=== PATIENT | female | born 1975 | race Caucasian/White ===

== ENCOUNTER 2017-06-12 15:12 | Emergency (ER) | payer MEDICAID, OTHER ==
[2017-06-12 15:14] VITALS: BMI 26.2
[2017-06-12 15:19] VITALS: BP 111/70; PULSE 70; RESP 16; O2SAT 97
[2017-06-12] MEDS ORDERED: Sodium Chloride 0.9% 1,000 ML IV STA (15:36)
--- NOTE | 2017-06-12 15:39 | ED PDOC ---
HPI: General Adult Time Seen by Provider: 06/12/17 15:27 Chief Complaint (Nursing): Altered Mental Status Chief Complaint (Provider): Anxiety History Per: Patient ( ), EMS, Family History/Exam Limitations: no limitations Onset/Duration Of Symptoms: Days (weeks) Have you had recent travel within the past 21 days to any of the following countries: [place], [place], [place] or [place]?: No Current Symptoms Are (Timing): Still Present Additional Complaint(s): Pt. has been having frequent panic attacks where she gets hands and feet numb, lips tingling, dyspnea, arms and legs tightness. Happens suddenly and goes away on its own when she gets out of what she is doing and tries to relax. Pt. had episode today multiple times and last in the [place]. EMS called and brought pt. to the ED. Denies chest pain, headaches, dizziness, vision changes, abd pain, back pain, suicidal ideation, homicidal ideation, drugs, or etoh. Has depression and anxiety and on meds. 3 more meds added on Saturday. Past Medical History Reviewed: Nursing Documentation, Vital Signs Vital Signs: Last Vital Signs Temp 97.9 F 06/12/17 15:15 Pulse 70 06/12/17 15:15 Resp 16 06/12/17 15:15 BP 111/70 06/12/17 15:15 Pulse Ox 97 06/12/17 15:45 - Medical History PMH: Anxiety, Depression Denies: Chronic Kidney Disease - Surgical History Surgical History: Tonsillectomy - Family History Family History: States: Unknown Family Hx - Living Arrangements Living Arrangements: With Family - Social History Current smoker - smoking cessation education provided: No Alcohol: None Drugs: Denies - Immunization History Hx Tetanus Toxoid Vaccination: No Hx Influenza Vaccination: Yes Hx Pneumococcal Vaccination: No - Home Medications Home Medications: Ambulatory Orders Medication Instructions Recorded Docusate Sodium 100 mg PO DAILY #20 tablet 06/09/16 Psych Meds Unknown Names 06/09/16 Amoxicillin/Clavulanate [Augmentin 1 tab PO BID #14 tab 01/02/17 875 MG-125 MG] Ibuprofen [Motrin] 600 mg PO Q6 PRN #15 tab 01/02/17 - Allergies Allergies/Adverse Reactions: Allergies Allergy/AdvReac Type Severity Reaction Status Date / Time No Known Allergies Allergy Verified 06/12/17 15:15 Review of Systems ROS Statement: Except As Marked, All Systems Reviewed And Found Negative Constitutional: Positive for: Weakness Respiratory: Positive for: Shortness of Breath Musculoskeletal: Positive for: Other (tightness of extremities) Neurological: Positive for: Weakness, Numbness Physical Exam - Reviewed Nursing Documentation Reviewed: Yes Vital Signs Reviewed: Yes - Physical Exam Appears: Positive for: Non-toxic, No Acute Distress Head Exam: Positive for: ATRAUMATIC, NORMAL INSPECTION, NORMOCEPHALIC Skin: Positive for: Normal Color, Warm, DRY Eye Exam: Positive for: EOMI, Normal appearance, PERRL ENT: Positive for: Normal ENT Inspection Neck: Positive for: Normal, Painless ROM, Supple Cardiovascular/Chest: Positive for: Regular Rate, Rhythm. Negative for: Edema Respiratory: Positive for: CNT, Normal Breath Sounds Gastrointestinal/Abdominal: Positive for: Normal Exam, Bowel Sounds, Soft. Negative for: Tenderness Back: Positive for: Normal Inspection. Negative for: L CVA Tenderness, R CVA Tenderness Extremity: Positive for: Normal ROM (passive). Negative for: Tenderness, Pedal Edema Neurologic/Psych: Positive for: Alert, shake backboard notcher II-XII, Oriented. Negative for: Motor/Sensory Deficits (but 3/5 strength all extremities), Facial Droop - ECG ECG: Positive for: Interpreted By Me, Viewed By Me ECG Rhythm: Positive for: Normal QRS, Normal ST Segment, Sinus Rhythm O2 Sat by Pulse Oximetry: 97 Pulse Ox Interpretation: Normal - Progress ED Course And Treament: 1645: Stable. AAOx3. Pain free. Dr. Hall to fu on labs and crisis. Disposition - Clinical Impression Clinical Impression: Anxiety - Patient ED Disposition Is Patient to be Admitted: Transfer of Care - Disposition Disposition: Transfer of Care Disposition Time: 16:46 Condition: STABLE Patient Signed Over To: Gerald Hall
--- NOTE | 2017-06-12 16:55 | ED PDOC ---
- Laboratory Results Result Diagrams: 06/12/17 17:00 06/12/17 17:00 - ECG O2 Sat by Pulse Oximetry: 97 (RA) Pulse Ox Interpretation: Normal Medical Decision Making Medical Decision Making: Time: 1700 --Patient was endorsed to provider by Dr. Rubio Blandon. Pending lab results and crisis evaluation. Scribe Attestation: Documented by Miguelina Potts, acting as a scribe for Gerald Hall MD. Provider Scribe Attestation: All medical record entries made by the Scribe were at my direction and personally dictated by me. I have reviewed the chart and agree that the record accurately reflects my personal performance of the history, physical exam, medical decision making, and the department course for this patient. I have also personally directed, reviewed, and agree with the discharge instructions and disposition. Disposition - Clinical Impression Clinical Impression: Anxiety - POA Present On Arrival: None - Disposition Disposition: Transfer of Care Disposition Time: 18:58 Condition: STABLE Forms: [employer] ([place]) Patient Signed Over To: Piero Laird
[2017-06-12 17:13] LABS: BASO # 0.1 K/uL (0.0-0.2); BASO % 0.7 % (0.0-2.0); EOS % 0.3 % (0.0-4.0); HEMATOCRIT 31.8 % (34.0-47.0); LYMPH # 2.5 K/uL (1.0-4.3); LYMPH % 35.5 % (20.0-40.0); MEAN CELL VOLUME 87.2 fl (81.0-99.0); MEAN CORPUSCULAR HEMOGLOBIN 28.5 pg (27.0-31.0); MEAN CORPUSCULAR HGB CONC 32.7 g/dL (33.0-37.0); MEAN PLATELET VOLUME 10.1 fl (7.2-11.7); MONO # 0.4 K/uL (0.0-0.8); MONO % 5.9 % (0.0-10.0); NEUT # 4.1 K/uL (1.8-7.0); NEUT % 57.6 % (50.0-75.0); WHITE BLOOD COUNT 7.2 K/uL (4.8-10.8)
[2017-06-12 17:27] VITALS: TEMP 98.3
[2017-06-12 17:34] LABS: RBC URINE 1 /hpf (0-3); URINE BACTERIA RARE (<OCC); URINE BILIRUBIN NEGATIVE (NEGATIVE); URINE BLOOD NEGATIVE (NEGATIVE); URINE COLOR YELLOW (YELLOW); URINE GLUCOSE (UA) NEG (Normal); URINE KETONE 20 mg/dL (NEGATIVE); URINE LEUKOCYTE ESTERASE MOD Leu/uL (Negative); URINE PROTEIN NEGATIVE (NEGATIVE); URINE UROBILINOGEN 0.2-1.0 mg/dL (0.2-1.0); WBC URINE 6 /hpf (0-5)
[2017-06-12 17:37] LABS: ALB/GLOB RATIO 1.3 (1.0-2.1); ALCOHOL SERUM < 10 mg/dl (0-10); ALKALINE PHOSPHATASE 34 U/L (38-126); ALT/SGPT 21 U/L (9-52); AST/SGOT 18 U/L (14-36); BILIRUBIN,TOTAL 0.3 mg/dl (0.2-1.3); BLOOD UREA NITROGEN 6 mg/dl (7-17); CALCIUM 8.7 mg/dL (8.4-10.2); CARBON DIOXIDE 24 mmol/L (22-30); CHLORIDE 107 mmol/L (98-107); GFR AFRICAN-AMERICAN > 60; GLUCOSE,RANDOM 84 mg/dL (65-105); POTASSIUM 3.4 MMOL/L (3.6-5.0); SODIUM 141 mmol/l (132-148); TOTAL PROTEIN 6.7 G/DL (6.3-8.2)
--- NOTE | 2017-06-12 19:33 | ED PDOC ---
- Laboratory Results Result Diagrams: 06/12/17 17:00 06/12/17 17:00 - ECG O2 Sat by Pulse Oximetry: 97 (RA) Medical Decision Making Medical Decision Making: Time: 1899 --Patient was endorsed to provider by Dr. Gerald Hall. Pending crisis evaluation. Patient cleared for discharge by Dr Pacheco Scribe Attestation: Documented by Miguelina Potts, acting as a scribe for Piero Laird MD. Provider Scribe Attestation: All medical record entries made by the Scribe were at my direction and personally dictated by me. I have reviewed the chart and agree that the record accurately reflects my personal performance of the history, physical exam, medical decision making, and the department course for this patient. I have also personally directed, reviewed, and agree with the discharge instructions and disposition. Disposition Doctor Will See Patient In The: Office Counseled Patient/Family Regarding: Studies Performed, Diagnosis, Need For Followup - Clinical Impression Clinical Impression: Anxiety, PTSD (post-traumatic stress disorder) - POA Present On Arrival: None - Disposition Referrals: [facility] [Outside] Disposition: Routine/Home Disposition Time: 19:56 Condition: GOOD Additional Instructions: Follow up with your PCP in 2-3 days. Instructions: Post Traumatic Stress Disorder (ED)
--- NOTE | 2017-06-13 07:32 | CARD ---
APPROVED REPORT EKG Measurement Heart [id number] <Conclusion> Sinus rhythm with occasional premature ventricular complexes Otherwise normal ECG
== END 2017-06-12 20:24 | disposition home or self-care (01) ==
LOC: H.ER 15:12
DX: F43.10 Post-traumatic stress disorder, unspecified (principal); F32.9 Major depressive disorder, single episode, unspecified; F41.9 Anxiety disorder, unspecified; R20.2 Paresthesia of skin
CPT/HCPCS: 80053; 80320; 80324; 80345; 80346; 80349; 80353; 80358; 80361; 81003; 81025; 83992; 84484; 85025; 93005; 96374; 99285; J2060; J7040

== ENCOUNTER 2017-08-06 16:32 | Emergency (ER) | payer OTHER ==
[2017-08-06 16:32] VITALS: BMI 26.2
[2017-08-06 19:59] VITALS: BP 97/59; PULSE 70; RESP 16; O2SAT 98
--- NOTE | 2017-08-06 20:13 | ED PDOC ---
HPI: General Adult Time Seen by Provider: 08/06/17 17:19 Chief Complaint (Nursing): Dizziness/Lightheaded Chief Complaint (Provider): Sinus pressure, sore throat Past Medical History Vital Signs: Last Vital Signs Temp 98.8 F 08/06/17 19:58 Pulse 70 08/06/17 19:58 Resp 16 08/06/17 19:58 BP 97/59 L 08/06/17 19:58 Pulse Ox 98 08/06/17 19:58 - Medical History PMH: Anxiety, Depression Denies: Diabetes, Hepatitis, HIV, HTN, Chronic Kidney Disease, Seizures, Sexually Transmitted Disease - Surgical History Surgical History: Tonsillectomy - Family History Family History: States: Unknown Family Hx - Immunization History Hx Tetanus Toxoid Vaccination: No Hx Influenza Vaccination: Yes Hx Pneumococcal Vaccination: No - Home Medications Home Medications: Ambulatory Orders Medication Instructions Recorded Clonazepam [Klonopin] 0.5 mg PO BID 06/12/17 Gabapentin [Neurontin] 1 tab PO BID 06/12/17 Sertraline [Zoloft] 50 mg PO DAILY 06/12/17 Zolpidem [Ambien] 10 mg PO HS 06/12/17 Amoxicillin/Clavulanate [Augmentin 1 tab PO BID #20 tab 08/06/17 875 MG-125 MG] Guaifen/Phenyleph/Acetaminophn 1 tab PO BID #14 tab 08/06/17 [Mucinex Fast-Max Cold & Sinus 325 mg-200 mg-5] - Allergies Allergies/Adverse Reactions: Allergies Allergy/AdvReac Type Severity Reaction Status Date / Time No Known Allergies Allergy Verified 06/12/17 15:15 - ECG O2 Sat by Pulse Oximetry: 98 Disposition - Clinical Impression Clinical Impression: Sinus pressure - Patient ED Disposition Is Patient to be Admitted: No Counseled Patient/Family Regarding: Diagnosis, Need For Followup, Rx Given - Disposition Disposition: Routine/Home Disposition Time: 20:01 Condition: GOOD Prescriptions: Amoxicillin/Clavulanate [Augmentin 875 MG-125 MG] 1 tab PO BID #20 tab Guaifen/Phenyleph/Acetaminophn [Mucinex Fast-Max Cold & Sinus 325 mg-200 mg-5] 1 tab PO BID #14 tab Instructions: Sinusitis (ED)
[2017-08-06 22:23] VITALS: TEMP 98.6
== END 2017-08-06 20:10 | disposition home or self-care (01) ==
LOC: H.ER 16:32
DX: J34.89 Other specified disorders of nose and nasal sinuses (principal); Z86.59 Personal history of other mental and behavioral disorders

== ENCOUNTER 2017-10-14 21:03 | Emergency (ER) | payer OTHER ==
[2017-10-14 21:04] VITALS: BMI 26.2
[2017-10-14 21:21] VITALS: BP 101/68; PULSE 74; RESP 16; TEMP 97.4; O2SAT 97
[2017-10-14] MEDS ORDERED: Iohexol 240 (50 ml) PO ONE (22:02)
[2017-10-14] MEDS ORDERED: Morphine 4 MG/ML VIAL IVP STA (22:02)
[2017-10-14] MEDS ORDERED: Morphine 4 MG/ML VIAL ONE (22:44)
[2017-10-14] MEDS ORDERED: Iohexol 240 (50 ml) ONE (22:45)
[2017-10-14 22:54] LABS: SQUAMOUS EPITHIAL < 1 /hpf (0-5); URINE BILIRUBIN NEGATIVE (NEGATIVE); URINE BLOOD NEGATIVE (NEGATIVE); URINE CLARITY SLIGHTY-CLOUDY (Clear); URINE COLOR YELLOW (YELLOW); URINE GLUCOSE (UA) NEG (Normal); URINE LEUKOCYTE ESTERASE NEG Leu/uL (Negative); URINE NITRATE NEGATIVE (NEGATIVE); URINE PROTEIN NEGATIVE (NEGATIVE); URINE UROBILINOGEN 0.2-1.0 mg/dL (0.2-1.0)
[2017-10-14 23:10] LABS: BASO # 0.1 K/uL (0.0-0.2); BASO % 1.3 % (0.0-2.0); EOS # 0.1 K/uL (0.0-0.7); EOS % 1.2 % (0.0-4.0); HEMOGLOBIN 10.3 g/dL (12.0-16.0); LYMPH % 41.7 % (20.0-40.0); MEAN CORPUSCULAR HEMOGLOBIN 28.6 pg (27.0-31.0); MEAN CORPUSCULAR HGB CONC 32.5 g/dL (33.0-37.0); MONO # 0.4 K/uL (0.0-0.8); MONO % 5.6 % (0.0-10.0); NEUT # 3.6 K/uL (1.8-7.0); NEUT % 50.2 % (50.0-75.0); RBC 3.6 Mil/uL (3.80-5.20); RED CELL DISTRIBUTION WIDTH 12.8 % (11.5-14.5); WHITE BLOOD COUNT 7.2 K/uL (4.8-10.8)
[2017-10-14 23:16] LABS: VENOUS BLOOD GAS BASE EXCESS 2.8 mmol/L (0.0-2.0); VENOUS BLOOD GAS PCO2 47 mmHg (40-60); VENOUS BLOOD GAS PO2 32 mm/Hg (30-55); VENOUS BLOOD PH 7.39 (7.32-7.43)
[2017-10-14 23:23] LABS: ALB/GLOB RATIO 1.2 (1.0-2.1); ALBUMIN 3.9 g/dL (3.5-5.0); ALT/SGPT 16 U/L (9-52); AST/SGOT 12 U/L (14-36); BLOOD UREA NITROGEN 13 mg/dl (7-17); CALCIUM 8.7 mg/dL (8.4-10.2); GFR AFRICAN-AMERICAN > 60; GFR NON-AFRICAN AMERICAN > 60; LIPASE 55 U/L (23-300)
[2017-10-15] MEDS ORDERED: Sodium Chloride 0.9% 50 ML IV ONE (00:28)
[2017-10-15] MEDS ORDERED: Iohexol 300 100 ML IJ ONE (00:28)
--- NOTE | 2017-10-15 00:37 | ED PDOC ---
HPI: Abdomen Time Seen by Provider: 10/14/17 21:26 Chief Complaint (Nursing): Abdominal Pain History Per: Patient History/Exam Limitations: no limitations Onset/Duration Of Symptoms: Days (4) Outside of [place] travel?: No Current Symptoms Are (Timing): Still Present Location Of Pain/Discomfort: Diffuse Quality Of Discomfort: Unable To Describe Associated Symptoms: denies: Fever, Chills, Nausea, Vomiting, Diarrhea Exacerbating Factors: None Additional Complaint(s): Hx of anxiety and depression p/w abdominal pain and distension x 4 days. States that her stomach is getting bigger and bigger and that the pain is worsening. Denies nausea, vomiting, constipation, fevers, chills, urinary symptoms. Past Medical History Vital Signs: Last Vital Signs Temp 97.4 F L 10/14/17 21:18 Pulse 74 10/14/17 21:18 Resp 16 10/14/17 21:18 BP 101/68 10/14/17 21:18 Pulse Ox 97 10/15/17 02:40 - Medical History PMH: Anxiety, Depression Denies: Diabetes, Hepatitis, HIV, HTN, Chronic Kidney Disease, Seizures, Sexually Transmitted Disease - Surgical History Surgical History: Tonsillectomy - Family History Family History: States: Unknown Family Hx - Immunization History Hx Tetanus Toxoid Vaccination: No Hx Influenza Vaccination: Yes Hx Pneumococcal Vaccination: No - Home Medications Home Medications: Ambulatory Orders Medication Instructions Recorded Clonazepam [Klonopin] 0.5 mg PO BID 06/12/17 Gabapentin [Neurontin] 1 tab PO BID 06/12/17 Sertraline [Zoloft] 50 mg PO DAILY 06/12/17 Zolpidem [Ambien] 10 mg PO HS 06/12/17 Amoxicillin/Clavulanate [Augmentin 1 tab PO BID #20 tab 08/06/17 875 MG-125 MG] Guaifen/Phenyleph/Acetaminophn 1 tab PO BID #14 tab 08/06/17 [Mucinex Fast-Max Cold & Sinus 325 mg-200 mg-5] Docusate [Colace] 100 mg PO DAILY #30 cap 10/15/17 - Allergies Allergies/Adverse Reactions: Allergies Allergy/AdvReac Type Severity Reaction Status Date / Time No Known Allergies Allergy Verified 06/12/17 15:15 Review of Systems ROS Statement: Except As Marked, All Systems Reviewed And Found Negative Gastrointestinal: Positive for: Abdominal Pain Physical Exam - Reviewed Nursing Documentation Reviewed: Yes Vital Signs Reviewed: Yes - Physical Exam Appears: Positive for: Well, Non-toxic, No Acute Distress Head Exam: Positive for: ATRAUMATIC, NORMAL INSPECTION, NORMOCEPHALIC Skin: Positive for: Normal Color, Warm, DRY Eye Exam: Positive for: EOMI, Normal appearance, PERRL ENT: Positive for: Normal ENT Inspection Neck: Positive for: Normal, Painless ROM Cardiovascular/Chest: Positive for: Regular Rate, Rhythm Respiratory: Positive for: CNT, Normal Breath Sounds Gastrointestinal/Abdominal: Positive for: Bowel Sounds, Soft, Tenderness ( diffuse mild tenderness), Distended Back: Positive for: Normal Inspection Extremity: Positive for: Normal ROM Neurologic/Psych: Positive for: Alert, Oriented - Laboratory Results Result Diagrams: 10/14/17 23:06 10/14/17 23:06 - ECG O2 Sat by Pulse Oximetry: 97 Medical Decision Making Medical Decision Making: A/P: Hx of anxiety and depression p/w abdominal pain and distension -largely undifferentiated abd pain, possibly ascites from liver? ovarian CA? constipation? -pending labs, CT --02:05 EXAM: CT Abdomen and Pelvis With Intravenous Contrast EXAM DATE/TIME: 10/14/2017 10:02 PM CLINICAL HISTORY: 41 years old, female; Pain; Abdominal pain; Generalized; Additional info: Abd pain x 5 days, distension TECHNIQUE: Axial computed tomography images of the abdomen and pelvis with intravenous contrast. All CT scans at this facility use one or more dose reduction techniques, viz.: automated exposure control; ma/kV adjustment per patient size (including targeted exams where dose is matched to indication; i.e. head); or iterative reconstruction technique. Coronal and sagittal reformatted images were created and reviewed. CONTRAST: 90 mL of [id number] administered intravenously. COMPARISON: There are no prior studies for comparison. FINDINGS: Lower thorax: Heart size is normal. There is small bilateral pleural effusions. There is airspace disease in the lung bases. ABDOMEN: Liver: There is fatty infiltration of the liver. There is a low attenuation lesion in the liver too small to accurately characterize Gallbladder and bile ducts: Gallbladder is distended.There is prominence of the common duct. Pancreas: unremarkable Spleen: unremarkable Adrenals: unremarkable Kidneys and ureters: unremarkable Stomach and bowel: Stomach is partially distended. There is no air-fluid level. Rotation is normal. Small bowel is partially opacified with oral contrast. There is no obstruction. There is fecalization of the terminal ileum. Appendix is not visualized.There is no pericecal inflammation. There is a large amount of stool in the colon Appendix: See stomach and bowel PELVIS: Bladder: unremarkable Reproductive: Uterus and adnexal structures are unremarkable. ABDOMEN and PELVIS: Intraperitoneal space: There is no significant fluid.There is no free air. Bones/joints: There are no acute osseous abnormalities. Soft tissues: unremarkable Vasculature: Vascular structures are unremarkable. Lymph nodes: There is no pathologic adenopathy. IMPRESSION: Small bilateral pleural effusions with basilar airspace disease; fatty liver, no acute sella visceral abnormality; constipation Additional nonemergent findings as described above. Thank you for allowing us to participate in the care of your patient. Dictated and Authenticated by: Pamela Thomason MD 10/15/2017 2:05 AM Eastern Time ([place] & [place]) 230 PT. reports feeling better. Informed of results. Denies respiratory issues at this time. Encouraged patient to f/u w/ PMD for possible referal to GI and colonoscopy. Return precautions discussed. Disposition - Clinical Impression Clinical Impression: Constipation - Patient ED Disposition Is Patient to be Admitted: No - Disposition Referrals: [facility] [Outside] Disposition: Routine/Home Disposition Time: 02:40 Condition: IMPROVED Prescriptions: Docusate [Colace] 100 mg PO DAILY #30 cap Instructions: Constipation in Adults Forms: [facility] ([employer])
--- NOTE | 2017-10-15 02:05 | CT ---
EXAM: CT Abdomen and Pelvis With Intravenous Contrast EXAM DATE/TIME: 10/14/2017 10:02 PM CLINICAL HISTORY: 41 years old, female; Pain; Abdominal pain; Generalized; Additional info: Abd pain x 5 days, distension TECHNIQUE: Axial computed tomography images of the abdomen and pelvis with intravenous contrast. All CT scans at this facility use one or more dose reduction techniques, viz.: automated exposure control; ma/kV adjustment per patient size (including targeted exams where dose is matched to indication; i.e. head); or iterative reconstruction technique. Coronal and sagittal reformatted images were created and reviewed. CONTRAST: 90 mL of [id number] administered intravenously. COMPARISON: There are no prior studies for comparison. FINDINGS: Lower thorax: Heart size is normal. There is small bilateral pleural effusions. There is airspace disease in the lung bases. ABDOMEN: Liver: There is fatty infiltration of the liver. There is a low attenuation lesion in the liver too small to accurately characterize Gallbladder and bile ducts: Gallbladder is distended.There is prominence of the common duct. Pancreas: unremarkable Spleen: unremarkable Adrenals: unremarkable Kidneys and ureters: unremarkable Stomach and bowel: Stomach is partially distended. There is no air-fluid level. Rotation is normal. Small bowel is partially opacified with oral contrast. There is no obstruction. There is fecalization of the terminal ileum. Appendix is not visualized.There is no pericecal inflammation. There is a large amount of stool in the colon. Appendix: See stomach and bowel PELVIS: Bladder: unremarkable Reproductive: Uterus and adnexal structures are unremarkable. ABDOMEN and PELVIS: Intraperitoneal space: There is no significant fluid.There is no free air. Bones/joints: There are no acute osseous abnormalities. Soft tissues: unremarkable Vasculature: Vascular structures are unremarkable. Lymph nodes: There is no pathologic adenopathy. IMPRESSION: Small bilateral pleural effusions with basilar airspace disease; fatty liver, no acute sella visceral abnormality; constipation Additional nonemergent findings as described above.
== END 2017-10-15 03:50 | disposition home or self-care (01) ==
LOC: H.ER 21:03
DX: K59.00 Constipation, unspecified (principal); F32.9 Major depressive disorder, single episode, unspecified; F41.9 Anxiety disorder, unspecified; J90 Pleural effusion, not elsewhere classified; K76.0 Fatty (change of) liver, not elsewhere classified
CPT/HCPCS: 74177; 80053; 81003; 81025; 82803; 83690; 85025; 96374; 96375; 99283; J1885; J2270; J2405; Q9966; Q9967

== ENCOUNTER 2017-10-21 12:02 | Emergency (ER) | payer OTHER ==
[2017-10-21 12:05] VITALS: BMI 24.2
--- NOTE | 2017-10-21 13:09 | ED PDOC ---
HPI: Abdomen Chief Complaint (Provider): Abdominal pain History Per: Patient History/Exam Limitations: no limitations Onset/Duration Of Symptoms: Days (4), Intermittent Episodes Current Symptoms Are (Timing): Intermittent Episodes Pain Scale Rating Of: 9 Location Of Pain/Discomfort: Diffuse Quality Of Discomfort: Sharp Associated Symptoms: Fever Exacerbating Factors: None Alleviating Factors: None Last Bowel Movement: Yesterday Additional History Per: Family (sister) Abnormal Vaginal Bleeding: No Last Menstral Period: 10/11/2017 <Elliott Ferguson - Last Filed: 10/21/17 18:29> <Piero Laird - Last Filed: 10/22/17 10:25> Time Seen by Provider: 10/21/17 12:24 Chief Complaint (Nursing): Abdominal Pain Additional Complaint(s): 41 yo ,f, PMhx/o Anxiety, Depression presents to Ed with c/o diffuse and generalized abdominal pain started 4 days ago , intermittent 9 times/day lasting 2 hours, sharp,not radiated, associated with subjective fever last night , sweating and abdominal swelling sensation . She also c/o flu like symptoms dry cough, sore throat, runny nose, right ear pain started 6 days ago. She denies nausea, vomiting, diarrhea, rectal bleeding, heartburn, vaginal bleeding , vaginal discharge, dysuria. Reports BM habits every 2 days. Last BM yesterday helped by glycerin suppository .Patient was evaluated for similar symptoms 6 days ago in ED and treated for constipation. patient reports that after discharge the pain subsided x 2 days and it restarted again 4 days ago. She was instructed to set appt with GI, but it has not be possible. (Elliott Ferguson) Supervising Attending Note - Supervising Attending Note The Documented history was done by the: Physician Centerless Grinding Machine Adjuster, Attending Physician The documented physical exam was done by the: Physician [employer] Grinding Machine Adjuster, Attending Physician The documented procedures were done by the: Physician [employer]less Grinding Machine Adjuster, Attending Physician - Attestation: I have personally seen and examined this patient.: Yes I have fully participated in the care of the patient.: Yes I have reviewed all pertinent clinical information: Yes <Piero Laird - Last Filed: 10/22/17 10:25> Past Medical History - Medical History PMH: Anxiety, Depression Denies: Diabetes, Hepatitis, HIV, HTN, Chronic Kidney Disease, Seizures, Sexually Transmitted Disease - Surgical History Surgical History: Tonsillectomy - Family History Family History: States: Unknown Family Hx - Immunization History Hx Tetanus Toxoid Vaccination: No Hx Influenza Vaccination: Yes Hx Pneumococcal Vaccination: No <Elliott Ferguson - Last Filed: 10/21/17 18:29> Reviewed: Historical Data, Nursing Documentation, Vital Signs <Piero Laird - Last Filed: 10/22/17 10:25> Vital Signs: Last Vital Signs Temp 97 F L 10/21/17 18:59 Pulse 78 10/21/17 18:59 Resp 19 10/21/17 18:59 BP 128/78 10/21/17 18:59 Pulse Ox 98 10/21/17 18:59 - Home Medications Home Medications: Ambulatory Orders Medication Instructions Recorded Clonazepam [Klonopin] 0.5 mg PO BID 06/12/17 Gabapentin [Neurontin] 1 tab PO BID 06/12/17 Sertraline [Zoloft] 50 mg PO DAILY 06/12/17 Zolpidem [Ambien] 10 mg PO HS 06/12/17 Amoxicillin/Clavulanate [Augmentin 1 tab PO BID #20 tab 08/06/17 875 MG-125 MG] Guaifen/Phenyleph/Acetaminophn 1 tab PO BID #14 tab 08/06/17 [Mucinex Fast-Max Cold & Sinus 325 mg-200 mg-5] Docusate [Colace] 100 mg PO DAILY #30 cap 10/15/17 - Allergies Allergies/Adverse Reactions: Allergies Allergy/AdvReac Type Severity Reaction Status Date / Time No Known Allergies Allergy Verified 06/12/17 15:15 Review of Systems Constitutional: Positive for: Fever ENT: Positive for: Ear Pain Respiratory: Positive for: Cough Gastrointestinal: Positive for: Abdominal Pain <Elliott Ferguson - Last Filed: 10/21/17 18:29> ROS Statement: Except As Marked, All Systems Reviewed And Found Negative <Piero Laird - Last Filed: 10/22/17 10:25> Physical Exam - Physical Exam Appears: Positive for: No Acute Distress Head Exam: Positive for: ATRAUMATIC, NORMOCEPHALIC Skin: Positive for: Normal Color Eye Exam: Positive for: Normal appearance Neck: Positive for: Normal Cardiovascular/Chest: Positive for: Regular Rate, Rhythm. Negative for: Edema, Gallop, Murmur Respiratory: Positive for: Normal Breath Sounds. Negative for: Crackles, Rales , Rhonchi, Wheezing Gastrointestinal/Abdominal: Positive for: Soft, Tenderness (generlized TD). Negative for: Distended, Guarding, Rebound Pelvic Exam: Positive for: External Exam Normal Back: Positive for: Normal Inspection Extremity: Positive for: Normal ROM. Negative for: Tenderness, Pedal Edema Neurologic/Psych: Positive for: Alert, Oriented <Elliott Ferguson - Last Filed: 10/21/17 18:29> - Reviewed Nursing Documentation Reviewed: Yes Vital Signs Reviewed: Yes <Piero Laird - Last Filed: 10/22/17 10:25> - Laboratory Results Result Diagrams: 10/21/17 13:41 10/21/17 13:41 - ECG O2 Sat by Pulse Oximetry: 100 <Elliott Ferguson - Last Filed: 10/21/17 18:29> - Laboratory Results Result Diagrams: 10/21/17 13:41 10/21/17 13:41 <Piero Laird A - Last Filed: 10/22/17 10:25> Medical Decision Making <Elliott Ferguson - Last Filed: 10/21/17 18:29> <Piero Laird A - Last Filed: 10/22/17 10:25> Medical Decision Makin:50 Initial impression Abdominal pain. Constipation Differential -Abdominal pain related with psycosomatic disorder. Irritable bowel Syndrome. Inflammatory bowel disease Plan CBC, CMP, lipase, Urine dip IV toradol, Pepcid, Bentyl PO 18:05 Patient revaluated. reports that is feeling better , abdominal pain has subsided and desires to eat. Labs reviewed, CBC, CMP, lipase, UA normal. CT add: No evidence of acute cholecystitis, pacreatitis, or appendicitis. Mild constipation. Interval decrease of pleural effusion since the previous exam. Patient is cleared to be discharge Continue with same medications follow up with his PMD follow up with GI in 2 weeks. (Elliott Ferguson) Disposition - Patient ED Disposition Is Patient to be Admitted: No - Disposition Disposition: Routine/Home Disposition Time: 18:28 <Elliott Ferguson - Last Filed: 10/21/17 18:29> Doctor Will See Patient In The: Office Counseled Patient/Family Regarding: Studies Performed, Diagnosis, Need For Followup <Piero Laird - Last Filed: 10/22/17 10:25> - Clinical Impression Clinical Impression: Constipation, Abdominal pain - Disposition Referrals: George Benjamin MD [Medical Doctor] - Condition: FAIR Additional Instructions: Follow up with your PCP in2 -3 days. Instructions: Constipation in Adults, Stomach Ache and Stomach Upset Print Language: MONG[place]
[2017-10-21 13:22] VITALS: RESP 19
[2017-10-21 13:52] LABS: BASO % 0.9 % (0.0-2.0); EOS % 0.6 % (0.0-4.0); HEMOGLOBIN 10.6 g/dL (12.0-16.0); LYMPH # 2.1 K/uL (1.0-4.3); LYMPH % 40.9 % (20.0-40.0); MEAN CELL VOLUME 87.4 fl (81.0-99.0); MEAN CORPUSCULAR HEMOGLOBIN 29.1 pg (27.0-31.0); MEAN CORPUSCULAR HGB CONC 33.3 g/dL (33.0-37.0); MONO # 0.3 K/uL (0.0-0.8); MONO % 5.3 % (0.0-10.0); NEUT # 2.7 K/uL (1.8-7.0); NEUT % 52.3 % (50.0-75.0); RBC 3.65 Mil/uL (3.80-5.20); RED CELL DISTRIBUTION WIDTH 12.7 % (11.5-14.5); WHITE BLOOD COUNT 5.1 K/uL (4.8-10.8)
[2017-10-21 13:54] LABS: SQUAMOUS EPITHIAL 4 /hpf (0-5); URINE AMORPHOUS SEDIMENT RARE /ul (<OCC); URINE BACTERIA RARE (<OCC); URINE BILIRUBIN NEGATIVE (NEGATIVE); URINE BLOOD NEGATIVE (NEGATIVE); URINE CLARITY SLIGHTY-CLOUDY (Clear); URINE COLOR YELLOW (YELLOW); URINE GLUCOSE (UA) NEG (Normal); URINE LEUKOCYTE ESTERASE NEG Leu/uL (Negative); URINE NITRATE NEGATIVE (NEGATIVE); URINE PROTEIN NEGATIVE (NEGATIVE); URINE UROBILINOGEN 0.2-1.0 mg/dL (0.2-1.0)
[2017-10-21 14:05] LABS: ALB/GLOB RATIO 1.2 (1.0-2.1); ALT/SGPT 20 U/L (9-52); AST/SGOT 14 U/L (14-36); BLOOD UREA NITROGEN 14 mg/dl (7-17); CALCIUM 9.2 mg/dL (8.4-10.2); GFR AFRICAN-AMERICAN > 60; GFR NON-AFRICAN AMERICAN > 60; LIPASE 59 U/L (23-300)
[2017-10-21 14:12] LABS: BENZODIAZEPINES, UR NEGATIVE (NEGATIVE)
[2017-10-21 14:16] LABS: BARBITURATES, UR NEGATIVE (NEGATIVE); OPIATES, UR NEGATIVE (NEGATIVE); PHENCYCLIDINE, UR NEGATIVE (NEGATIVE)
--- NOTE | 2017-10-21 17:10 | CT ---
PROCEDURE: CT Abdomen and Pelvis with contrast HISTORY: diffuse abdominal pain COMPARISON: Comparison is made with previous study dated 10/15/2017 TECHNIQUE: Contrast dose: 100 mL Omnipaque 300. Axial and reformatted coronal and sagittal CT images of the abdomen and pelvis were obtained after IV contrast administration Radiation dose: Total exam DLP = 701.26 MGy-cm. This CT exam was performed using one or more of the following dose reduction techniques: Automated exposure control, adjustment of the mA and/or kV according to patient size, and/or use of iterative reconstruction technique. FINDINGS: LOWER THORAX: No evidence of acute pathology at the lung bases. Trace bilateral pleural effusions are noted less compared to the previous exam. LIVER: No significant interval change in the liver noted since the previous study. Mild hepatomegaly and mild diffuse low-attenuation of the liver is again noted. The portal vein is patent. GALLBLADDER AND BILE DUCTS: Unremarkable. PANCREAS: Unremarkable. No gross lesion or ductal dilatation. SPLEEN: Unremarkable. ADRENALS: Unremarkable. No mass. KIDNEYS AND URETERS: Unremarkable. No hydronephrosis. No solid mass. VASCULATURE: Unremarkable. No aortic aneurysm. BOWEL: Mild constipation is again noted. . No obstruction. No gross mural thickening. APPENDIX: No evidence of appendicitis P PERITONEUM: Small amount of fluid noted in the pelvis. LYMPH NODES: Unremarkable. No enlarged lymph nodes. BLADDER: Unremarkable. REPRODUCTIVE: The uterus is heterogeneous. BONES: No acute fracture. OTHER FINDINGS: None. IMPRESSION: Heterogeneous enhancement of the uterus without evidence of discrete lesion. No evidence of cholecystitis pancreatitis or appendicitis. Mild constipation. Interval decrease in the amount of pleural fusions since the previous exam.
[2017-10-21 19:01] VITALS: BP 128/78; PULSE 78; TEMP 97; O2SAT 98
== END 2017-10-21 19:01 | disposition home or self-care (01) ==
LOC: H.ER 12:02
DX: K59.00 Constipation, unspecified (principal); F32.9 Major depressive disorder, single episode, unspecified; F41.9 Anxiety disorder, unspecified
CPT/HCPCS: 74177; 80053; 80324; 80345; 80346; 80349; 80353; 80358; 80361; 81003; 81025; 83690; 83992; 85025; 96374; 96375; 99282; J1885

== ENCOUNTER 2017-12-06 13:10 | Emergency (ER) | payer OTHER ==
[2017-12-06 13:11] VITALS: BMI 24.2
[2017-12-06 14:47] LABS: BASO # 0.1 K/uL (0.0-0.2); BASO % 0.9 % (0.0-2.0); EOS % 0.6 % (0.0-4.0); HEMOGLOBIN 11.1 g/dL (12.0-16.0); LYMPH # 2.3 K/uL (1.0-4.3); LYMPH % 38.5 % (20.0-40.0); MEAN CELL VOLUME 88.4 fl (81.0-99.0); MEAN CORPUSCULAR HEMOGLOBIN 28.8 pg (27.0-31.0); MEAN CORPUSCULAR HGB CONC 32.6 g/dL (33.0-37.0); MEAN PLATELET VOLUME 10.7 fl (7.2-11.7); MONO # 0.4 K/uL (0.0-0.8); MONO % 6.2 % (0.0-10.0); NEUT # 3.2 K/uL (1.8-7.0); NEUT % 53.8 % (50.0-75.0); NRBC % 0.1 % (0.0-0.0); RBC 3.87 Mil/uL (3.80-5.20); RED CELL DISTRIBUTION WIDTH 12.9 % (11.5-14.5)
[2017-12-06 14:49] LABS: SQUAMOUS EPITHIAL 1 /hpf (0-5); URINE BILIRUBIN NEGATIVE (NEGATIVE); URINE BLOOD SMALL (NEGATIVE); URINE CLARITY SLIGHTY-CLOUDY (Clear); URINE COLOR YELLOW (YELLOW); URINE GLUCOSE (UA) NEG (Normal); URINE LEUKOCYTE ESTERASE SMALL Leu/uL (Negative); URINE PROTEIN 30 mg/dL (NEGATIVE); URINE UROBILINOGEN 0.2-1.0 mg/dL (0.2-1.0)
[2017-12-06 14:57] LABS: ALB/GLOB RATIO 1.2 (1.0-2.1); ALBUMIN 3.9 g/dL (3.5-5.0); ALT/SGPT 25 U/L (9-52); AST/SGOT 13 U/L (14-36); BLOOD UREA NITROGEN 11 mg/dl (7-17); CALCIUM 8.6 mg/dL (8.4-10.2); GFR AFRICAN-AMERICAN > 60; GFR NON-AFRICAN AMERICAN > 60; LIPASE 50 U/L (23-300)
--- NOTE | 2017-12-06 15:08 | RAD ---
PROCEDURE: Radiographs of the chest and abdomen (obstructive series) HISTORY: abd COMPARISON: No prior. TECHNIQUE: AP radiograph of the chest, with upright and supine radiographs of the abdomen. FINDINGS: CHEST: Lungs: Clear. Cardiovascular: Normal size heart. No pulmonary vascular congestion. Pleura: No pleural fluid. No pneumothorax. Other findings: None. ABDOMEN AND PELVIS: Bowel: Unremarkable bowel gas pattern. No evidence of mechanical obstruction. Air-fluid levels are questioned at the right lower quadrant within ascending colon potentially reflecting diarrhea. Clinically correlate. Free air: None. Bones: Unremarkable. Other findings: None. IMPRESSION: No bowel obstruction appreciated grossly. No free intrarenal gas or suspicious intra-abdominal calcifications. Diarrhea pattern may be present as discussed above within large bowel. Clinically correlate. No acute cardiopulmonary changes.
--- NOTE | 2017-12-06 15:43 | ED PDOC ---
HPI: Abdomen Time Seen by Provider: 12/06/17 13:50 Chief Complaint (Nursing): Abdominal Pain Chief Complaint (Provider): abd pain History Per: Patient (42 y/o female here with lower abdominal pain severe associated with constipation. Denies any fevers/chills. Has been seen in past for constipation. Has been given referral for GI but unable to make appointment. No h/o abd surgery in past.) Past Medical History Reviewed: Historical Data, Nursing Documentation, Vital Signs Vital Signs: Last Vital Signs Temp 99 F 12/06/17 13:16 Pulse 105 H 12/06/17 13:16 Resp 18 12/06/17 13:16 BP Pulse Ox 98 12/06/17 15:44 - Medical History PMH: Anxiety, Depression Denies: Diabetes, Hepatitis, HIV, HTN, Chronic Kidney Disease, Seizures, Sexually Transmitted Disease - Surgical History Surgical History: Tonsillectomy - Family History Family History: States: Unknown Family Hx - Immunization History Hx Tetanus Toxoid Vaccination: No Hx Influenza Vaccination: Yes Hx Pneumococcal Vaccination: No - Home Medications Home Medications: Ambulatory Orders Medication Instructions Recorded Clonazepam [Klonopin] 0.5 mg PO BID 06/12/17 Gabapentin [Neurontin] 1 tab PO BID 06/12/17 Sertraline [Zoloft] 50 mg PO DAILY 06/12/17 Zolpidem [Ambien] 10 mg PO HS 06/12/17 Amoxicillin/Clavulanate [Augmentin 1 tab PO BID #20 tab 08/06/17 875 MG-125 MG] Guaifen/Phenyleph/Acetaminophn 1 tab PO BID #14 tab 08/06/17 [Mucinex Fast-Max Cold & Sinus 325 mg-200 mg-5] Docusate [Colace] 100 mg PO DAILY #30 cap 10/15/17 Polyethylene Glycol 3350 [Miralax] 17 gm PO DAILY #85 gm 12/06/17 - Allergies Allergies/Adverse Reactions: Allergies Allergy/AdvReac Type Severity Reaction Status Date / Time No Known Allergies Allergy Verified 06/12/17 15:15 Review of Systems ROS Statement: Except As Marked, All Systems Reviewed And Found Negative Physical Exam - Reviewed Nursing Documentation Reviewed: Yes Vital Signs Reviewed: Yes - Physical Exam Appears: Positive for: Well, Non-toxic, No Acute Distress Head Exam: Positive for: ATRAUMATIC, NORMAL INSPECTION, NORMOCEPHALIC Skin: Positive for: Normal Color, Warm, DRY Eye Exam: Positive for: EOMI, Normal appearance, PERRL ENT: Positive for: Normal ENT Inspection Neck: Positive for: Normal, Painless ROM Cardiovascular/Chest: Positive for: Regular Rate, Rhythm Respiratory: Positive for: CNT, Normal Breath Sounds Gastrointestinal/Abdominal: Positive for: Normal Exam, Soft, Tenderness (tender right lower quadrant) Back: Positive for: Normal Inspection Rectal: Positive for: Other (no stool in vault.) Extremity: Positive for: Normal ROM Neurologic/Psych: Positive for: Alert, Oriented - Laboratory Results Result Diagrams: 12/06/17 13:46 12/06/17 13:46 - ECG O2 Sat by Pulse Oximetry: 98 - Progress ED Course And Treament: Fleet enema given in ED with minimal stool and minimal improvement of symptoms XRY abdomeN: No signs of obstruction. CT OF ABD/PELVIS: PELVIC CONGESTION SYNDROME; RETAINED FECES. Disposition - Clinical Impression Clinical Impression: Constipation - Patient ED Disposition Is Patient to be Admitted: No - Disposition Referrals: Rene Powell MD [Staff Provider] - [facility] [[facility]] Disposition: Routine/Home Disposition Time: 17:34 Condition: STABLE Prescriptions: Polyethylene Glycol 3350 [Miralax] 17 gm PO DAILY #85 gm Instructions: Constipation, Adult (DC) Forms: [facility] (Hebrew), [facility]Work Excuse
[2017-12-06] MEDS ORDERED: Sodium Chloride 0.9% 1,000 ML IV STA (15:44)
[2017-12-06] MEDS ORDERED: Iohexol 300 100 ML IJ ONE (15:54)
[2017-12-06] MEDS ORDERED: Sodium Chloride 0.9% 100 ML ONE (15:55)
--- NOTE | 2017-12-06 16:37 | CT ---
PROCEDURE: CT Abdomen and Pelvis with contrast HISTORY: abdominal pain COMPARISON: None. TECHNIQUE: Contrast dose: 95 mL Omnipaque 300 Radiation dose: Total exam DLP = 533.78 mGy-cm. This CT exam was performed using one or more of the following dose reduction techniques: Automated exposure control, adjustment of the mA and/or kV according to patient size, and/or use of iterative reconstruction technique. FINDINGS: LOWER THORAX: Unremarkable. LIVER: Unremarkable. No gross lesion or ductal dilatation. GALLBLADDER AND BILE DUCTS: Unremarkable. PANCREAS: Unremarkable. No gross lesion or ductal dilatation. SPLEEN: Unremarkable. ADRENALS: Unremarkable. No mass. KIDNEYS AND URETERS: Unremarkable. No hydronephrosis. No solid mass. VASCULATURE: Unremarkable. No aortic aneurysm. BOWEL: Mild retained feces. No bowel obstruction. No abnormal bowel loops. APPENDIX: Not identified. No secondary findings to suggest acute appendicitis. PERITONEUM: Unremarkable. No free fluid. No free air. LYMPH NODES: Unremarkable. No enlarged lymph nodes. BLADDER: Unremarkable. REPRODUCTIVE: Unremarkable uterus. Left-sided pelvic varices. This may be associated pelvic congestion syndrome. BONES: No acute fracture. OTHER FINDINGS: None. IMPRESSION: No acute abnormality. 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 Mild retained feces. No additional abnormality.
[2017-12-06 17:54] VITALS: BP 125/80; PULSE 75; RESP 16; TEMP 97.9; O2SAT 100
== END 2017-12-06 17:57 | disposition home or self-care (01) ==
LOC: H.ER 13:10
DX: K59.00 Constipation, unspecified (principal); I86.2 Pelvic varices; F32.9 Major depressive disorder, single episode, unspecified; F41.9 Anxiety disorder, unspecified
CPT/HCPCS: 74022; 74177; 80053; 81003; 81025; 83690; 85025; 87086; 99283; J7040; Q9967

== ENCOUNTER 2018-02-06 14:37 | Emergency (ER) | payer OTHER ==
[2018-02-06 14:37] VITALS: BMI 24.2
[2018-02-06 15:01] VITALS: BP 92/62; PULSE 70; RESP 18; TEMP 98.3; O2SAT 97
--- NOTE | 2018-02-06 15:42 | ED PDOC ---
HPI: Back Time Seen by Provider: 02/06/18 15:03 Chief Complaint (Nursing): Back Pain Chief Complaint (Provider): Back pain History Per: Patient History/Exam Limitations: no limitations Onset/Duration Of Symptoms: Persistent Current Symptoms Are (Timing): Still Present Quality Of Discomfort: "Pain" Additional History Per: Patient Additional Complaint(s): 42yo female, presents to ED for evaluation of 1 week of low back pain radiating to her right and left leg intermittently. Patient states she works in [employer] and lifts heavy objects at time. She denies any trauma, injuries or falls. Otherwise: (-) urinary symptoms, (-) paresthesias, (-) weakness, (-) acute bowel or bladder dysfunction, (-) fever. Has no history of prior back problem. Past Medical History Reviewed: Historical Data, Nursing Documentation, Vital Signs Vital Signs: Last Vital Signs Temp 98.3 F 02/06/18 14:55 Pulse 70 02/06/18 14:55 Resp 18 02/06/18 14:55 BP 92/62 L 02/06/18 14:55 Pulse Ox 97 02/06/18 14:55 - Medical History PMH: Anxiety, Depression Denies: Diabetes, Hepatitis, HIV, HTN, Chronic Kidney Disease, Seizures, Sexually Transmitted Disease - Surgical History Surgical History: Tonsillectomy - Family History Family History: States: No Known Family Hx, Unknown Family Hx - Immunization History Hx Tetanus Toxoid Vaccination: No Hx Influenza Vaccination: Yes Hx Pneumococcal Vaccination: No - Home Medications Home Medications: Ambulatory Orders Medication Instructions Recorded Clonazepam [Klonopin] 0.5 mg PO BID 06/12/17 Gabapentin [Neurontin] 1 tab PO BID 06/12/17 Sertraline [Zoloft] 50 mg PO DAILY 06/12/17 Zolpidem [Ambien] 10 mg PO HS 06/12/17 Amoxicillin/Clavulanate [Augmentin 1 tab PO BID #20 tab 08/06/17 875 MG-125 MG] Guaifen/Phenyleph/Acetaminophn 1 tab PO BID #14 tab 08/06/17 [Mucinex Fast-Max Cold & Sinus 325 mg-200 mg-5] Docusate [Colace] 100 mg PO DAILY #30 cap 10/15/17 Polyethylene Glycol 3350 [Miralax] 17 gm PO DAILY #85 gm 12/06/17 Cyclobenzaprine [Cyclobenzaprine 10 mg PO TID PRN #15 tab 02/06/18 HCl] Meloxicam [Mobic] 15 mg PO DAILY PRN #20 tab 02/06/18 - Allergies Allergies/Adverse Reactions: Allergies Allergy/AdvReac Type Severity Reaction Status Date / Time No Known Allergies Allergy Verified 02/06/18 15:02 Review of Systems Constitutional: Negative for: Fever, Chills Genitourinary Female: Negative for: Incontinence Musculoskeletal: Positive for: Back Pain Neurological: Negative for: Weakness, Numbness Physical Exam - Reviewed Nursing Documentation Reviewed: Yes Vital Signs Reviewed: Yes - Physical Exam Comments: GENERAL APPEARANCE: Patient is awake, alert, oriented x 3, in mild painful distress. SKIN: Warm, dry; (-) cyanosis. EYES: (-) conjunctival pallor. ENMT: Mucous membranes moist. NECK: (-) tenderness, (-) stiffness, (-) lymphadenopathy. CHEST AND RESPIRATORY: (-) rales, (-) rhonchi, (-) wheezes; breath sounds equal bilaterally. HEART AND CARDIOVASCULAR: (-) irregularity; (-) murmur, (-) gallop. ABDOMEN AND GI: Soft; (-) tenderness; (-) palpable mass. BACK: (+) paralumbar tenderness, (-) direct bony tenderness, (-) deformity. Straight leg raising (-) bilaterally. EXTREMITIES: (-) deformity. Distal pulses good bilaterally. NEURO AND PSYCH: Mental status as above. Intact sensation bilaterally; normal strength in extension of the knees, plantar and dorsiflexion of the toes. DTRs symmetric. - ECG O2 Sat by Pulse Oximetry: 97 (RA) Pulse Ox Interpretation: Normal Medical Decision Making Medical Decision Making: Impression: Back pain, likely sciatica Plan: -- Toradol 60mg IM Progress: Patient remains awake, alert, oriented x 3 and is laying in bed comfortably. Reports improvement of pain. Patient able to stand up and ambulate in the ER without difficulty. Patient feels comfortable going home. As she is currently fasting for her zoroastrianism she is refusing any PO medication at this time, however she is agreeable to taking a Rx home and will take when she is no longer fasting. Advised to follow up with primary care physician in 1-2 days without fail. Advised to take medication as prescribed. Return to the emergency room at any time for any new or worsening symptoms. Patient states she fully agrees with and understands discharge instructions. States that she agrees with the plan and disposition. Verbalized and repeated discharge instructions and plan. I have given the patient opportunity to ask any additional questions. Scribe Attestation: Documented by Zarina Murray acting as a scribe for ELBA Reaves. Provider Scribe Attestation: All medical record entries made by the Scribe were at my direction and personally dictated by me. I have reviewed the chart and agree that the record accurately reflects my personal performance of the history, physical exam, medical decision making, and the department course for this patient. I have also personally directed, reviewed, and agree with the discharge instructions and disposition. Disposition - Clinical Impression Clinical Impression: Sciatica - Patient ED Disposition Is Patient to be Admitted: No Counseled Patient/Family Regarding: Diagnosis, Need For Followup, Rx Given - Disposition Referrals: Gaurav Lainez MD [Staff Provider] - Disposition: Routine/Home Disposition Time: 15:45 Condition: IMPROVED Additional Instructions: Take medication as prescribed, follow up with referral physician in 1-2 days without fail. Return to the ER at any time for any new or worsening symptoms. Prescriptions: Cyclobenzaprine [Cyclobenzaprine HCl] 10 mg PO TID PRN #15 tab PRN Reason: Muscle Spasm Meloxicam [Mobic] 15 mg PO DAILY PRN #20 tab PRN Reason: Pain, Moderate (4-7) Instructions: Sciatica (DC) Forms: [employer] (Canadian), [facility] ED School/Work Excuse
== END 2018-02-06 16:32 | disposition home or self-care (01) ==
LOC: H.ER 14:37
DX: M54.30 Sciatica, unspecified side (principal); F32.9 Major depressive disorder, single episode, unspecified; F41.9 Anxiety disorder, unspecified
CPT/HCPCS: 81025; 96372; 99283; J1885

== ENCOUNTER → 2018-02-24 | Day surgery (SDC) | payer OTHER ==
[~2018-02-24] MED LIST: Etomidate 20 mg/10ml Inj IV ONE; Lactated Ringer's 500 ML IV ONE; Midazolam 2 MG/2 ML VIAL ONE; Propofol 10 mg/ml Inj (20 ML) ONE
[2018-02-24 10:38] VITALS: BMI 46.3
[2018-02-24 12:57] VITALS: TEMP 98.5; O2SAT 97
[2018-02-24 13:11] VITALS: BP 96/59; PULSE 68; RESP 21
== END | disposition home or self-care (01) ==
LOC: H.ENDO 08:42
PROVIDERS: ATTEND Internal Medicine Gastroenterology
DX: Z12.11 Encounter for screening for malignant neoplasm of colon (principal); F41.9 Anxiety disorder, unspecified; K64.8 Other hemorrhoids; K44.9 Diaphragmatic hernia without obstruction or gangrene; K29.50 Unspecified chronic gastritis without bleeding; R10.13 Epigastric pain
CPT/HCPCS: 43239; 45378; 88305; J2001; J2250; J2704; J7120

== ENCOUNTER 2018-04-03 15:25 | Emergency (ER) | payer OTHER ==
[2018-04-03 15:26] VITALS: BMI 46.3
[2018-04-03 15:35] VITALS: BP 112/78; PULSE 83; RESP 18; TEMP 98.1
--- NOTE | 2018-04-03 15:50 | ED PDOC ---
Lower Extremity Pain/Injury Time Seen by Provider: 04/03/18 15:39 Chief Complaint (Nursing): Lower Extremity Problem/Injury Chief Complaint (Provider): knee injury History Per: Patient Additional Complaint(s): 42-year-old female presents with abrasion to left knee status post fall 2 days ago. Patient has pain and swelling to affected area. She took Advil yesterday which helped somewhat. Patient able to walk but has mild pain when doing so. Patient states she did not seek medical attention at time of injury 2 days ago. She also states that tetanus is up-to-date. PMD: Dr. Potter Past Medical History Reviewed: Historical Data, Nursing Documentation, Vital Signs Vital Signs: Last Vital Signs Temp 98.1 F 04/03/18 15:30 Pulse 83 04/03/18 15:30 Resp 18 04/03/18 15:30 BP 112/78 04/03/18 15:30 Pulse Ox 98 04/03/18 15:30 - Medical History PMH: Anxiety, Depression - Surgical History Surgical History: Tonsillectomy - Family History Family History: States: No Known Family Hx - Living Arrangements Living Arrangements: With Family - Social History Current smoker - smoking cessation education provided: No Alcohol: None Drugs: Denies - Immunization History Hx Tetanus Toxoid Vaccination: Yes - Home Medications Home Medications: Ambulatory Orders Medication Instructions Recorded Clonazepam [Klonopin] 1 mg PO HS 06/12/17 Gabapentin [Neurontin] 1 tab PO DAILY 06/12/17 Sertraline [Zoloft] 50 mg PO DAILY 06/12/17 Zolpidem [Ambien] 5 mg PO HS 06/12/17 Prazosin HCL [Minipress] 5 mg PO DAILY 02/24/18 Quetiapine Fumarate [Seroquel] 100 mg PO DAILY 02/24/18 Ibuprofen [Motrin] 600 mg PO Q6 PRN #15 tab 04/03/18 - Allergies Allergies/Adverse Reactions: Allergies Allergy/AdvReac Type Severity Reaction Status Date / Time No Known Allergies Allergy Verified 04/03/18 15:35 Review of Systems ROS Statement: Except As Marked, All Systems Reviewed And Found Negative Musculoskeletal: Positive for: Other (left knee abrasion and pain s/p injury 2 days ago) Physical Exam - Reviewed Nursing Documentation Reviewed: Yes Vital Signs Reviewed: Yes - Physical Exam Appears: Positive for: Well, Non-toxic, No Acute Distress Skin: Positive for: Normal Color. Negative for: Rash Eye Exam: Positive for: Normal appearance Cardiovascular/Chest: Positive for: Regular Rate, Rhythm Respiratory: Positive for: Normal Breath Sounds Extremity: Positive for: Other (Superficial abrasion noted to left patellar region with surrounding soft tissue swelling, no acute infection, full range of motion of left knee, normal distal sensation) Neurologic/Psych: Positive for: Alert, Oriented, Gait - Laboratory Results Urine POC: Negative (test declined, patient is certain she is not ) - ECG O2 Sat by Pulse Oximetry: 98 Pulse Ox Interpretation: Normal Medical Decision Making Medical Decision Makin-year-old female with abrasion to left knee. Plan: PO motrin Wound was cleansed with saline, bacitracin and bandage applied. X-ray declined Patient advised ice and elevate affected area and was given prescription for Motrin. She was advised to follow up as needed with PMD. Disposition - Clinical Impression Clinical Impression: Knee abrasion - Patient ED Disposition Is Patient to be Admitted: No Counseled Patient/Family Regarding: Diagnosis, Need For Followup, Rx Given - Disposition Referrals: Nawaf Potter MD [Family Provider] - Disposition: Routine/Home Disposition Time: 16:06 Condition: STABLE Additional Instructions: Ice, rest and elevate affected area. Wash wound daily with soap and water and apply neosporin once per day. Follow up with primary care doctor for any persistent symptoms. Prescriptions: Ibuprofen [Motrin] 600 mg PO Q6 PRN #15 tab PRN Reason: Pain, Moderate (4-7) Instructions: Skin Abrasions (DC), Contusion (DC), Knee Sprain (DC) Forms: [employer] (Lao)
[2018-04-03 16:18] VITALS: O2SAT 99
== END 2018-04-03 16:18 | disposition home or self-care (01) ==
LOC: H.ER 15:25
DX: S80.212A Abrasion, left knee, initial encounter (principal); W19.XXXA Unspecified fall, initial encounter; Y92.89 Other specified places as the place of occurrence of the external cause; F41.9 Anxiety disorder, unspecified

== ENCOUNTER 2018-12-15 12:27 | Emergency (ER) | payer MEDICAID, OTHER ==
[2018-12-15 12:27] VITALS: BMI 25.7
[2018-12-15 12:49] VITALS: O2SAT 99
[2018-12-15] MEDS ORDERED: Alum-Mag Hydrox-Simethicone Susp (30 mL) PO ONE (13:07)
--- NOTE | 2018-12-15 13:11 | ED PDOC ---
HPI: Abdomen Time Seen by Provider: 12/15/18 13:09 Chief Complaint (Nursing): Abdominal Pain Chief Complaint (Provider): ABDOMINAL PAIN History Per: Patient (43 Y/O FEMALE HERE WITH COMPLAINT OF GENERALIZED ABDOMINAL PAIN X 10 DAYS. STATES PAIN IS CONTINUOUS DAILY. HAS SEEN DR KWAKU MARTINES WITH ENDOSCOPY 8 MONTHS AGO UNSURE OF RESULTS. NO FEVER/VOMITING/DIARRHEA/DYSURIA/) Past Medical History Reviewed: Historical Data, Nursing Documentation, Vital Signs Vital Signs: Last Vital Signs Temp 98 F 12/15/18 12:46 Pulse 63 12/15/18 12:46 Resp 18 12/15/18 12:46 BP 97/62 L 12/15/18 12:46 Pulse Ox 99 12/15/18 12:46 - Medical History PMH: Anxiety, Depression Denies: Diabetes, Hepatitis, HIV, HTN, Chronic Kidney Disease, Seizures, Sexually Transmitted Disease - Surgical History Surgical History: Tonsillectomy - Family History Family History: States: Unknown Family Hx - Immunization History Hx Tetanus Toxoid Vaccination: No Hx Influenza Vaccination: No Hx Pneumococcal Vaccination: No - Home Medications Home Medications: Ambulatory Orders Medication Instructions Recorded Clonazepam [Klonopin] 1 mg PO HS 06/12/17 Gabapentin [Neurontin] 1 tab PO DAILY 06/12/17 Sertraline [Zoloft] 50 mg PO DAILY 06/12/17 Zolpidem [Ambien] 5 mg PO HS 06/12/17 Prazosin HCL [Minipress] 5 mg PO DAILY 02/24/18 Quetiapine Fumarate [Seroquel] 100 mg PO DAILY 02/24/18 Ibuprofen [Motrin] 600 mg PO Q6 PRN #15 tab 04/03/18 Pantoprazole Sodium [Protonix] 40 mg PO DAILY #30 ect 12/15/18 Ranitidine HCl [Zantac 75] 75 mg PO BID #10 tablet 12/15/18 - Allergies Allergies/Adverse Reactions: Allergies Allergy/AdvReac Type Severity Reaction Status Date / Time No Known Allergies Allergy Verified 12/15/18 12:46 Review of Systems ROS Statement: Except As Marked, All Systems Reviewed And Found Negative Gastrointestinal: Positive for: Abdominal Pain Physical Exam - Reviewed Nursing Documentation Reviewed: Yes Vital Signs Reviewed: Yes - Physical Exam Appears: Positive for: Well, Non-toxic, No Acute Distress Head Exam: Positive for: ATRAUMATIC, NORMAL INSPECTION, NORMOCEPHALIC Skin: Positive for: Normal Color, Warm, DRY Eye Exam: Positive for: EOMI, Normal appearance, PERRL ENT: Positive for: Normal ENT Inspection Neck: Positive for: Normal, Painless ROM Cardiovascular/Chest: Positive for: Regular Rate, Rhythm Respiratory: Positive for: CNT, Normal Breath Sounds Gastrointestinal/Abdominal: Positive for: Normal Exam, Soft, Tenderness (RUQ TENDERNESS NOTED.) Back: Positive for: Normal Inspection Extremity: Positive for: Normal ROM Neurological/Psych: Positive for: Awake, Alert, Normal Tone - Laboratory Results Result Diagrams: 12/15/18 13:00 12/15/18 13:00 - ECG O2 Sat by Pulse Oximetry: 99 - Progress ED Course And Treament: IMPRESSION: Unremarkable ultrasound examination. No evidence of cholelithiasis or cholecystitis. Disposition - Clinical Impression Clinical Impression: Gastritis - Patient ED Disposition Is Patient to be Admitted: No - Disposition Referrals: Rene Powell MD [Staff Provider] - Disposition: Routine/Home Disposition Time: 15:37 Condition: FAIR Prescriptions: Pantoprazole Sodium [Protonix] 40 mg PO DAILY #30 ect Ranitidine HCl [Zantac 75] 75 mg PO BID #10 tablet Instructions: Gastritis (DC), Ulcer and Gastritis Diet
[2018-12-15] MEDS ORDERED: Alum-Mag Hydrox-Simethicone Susp (30 mL) ONE (13:42)
[2018-12-15 14:00] LABS: BASO % 0.6 % (0.0-2.0); EOS % 0.7 % (0.0-4.0); HEMOGLOBIN 11.2 g/dL (12.0-16.0); LYMPH % 27.6 % (20.0-40.0); MEAN CELL VOLUME 86.4 fl (81.0-99.0); MEAN CORPUSCULAR HEMOGLOBIN 28.8 pg (27.0-31.0); MEAN CORPUSCULAR HGB CONC 33.4 g/dL (33.0-37.0); MEAN PLATELET VOLUME 9.6 fl (7.2-11.7); MONO # 0.4 K/uL (0.0-0.8); MONO % 5.6 % (0.0-10.0); NEUT # 4.8 K/uL (1.8-7.0); NEUT % 65.5 % (50.0-75.0); RBC 3.9 Mil/uL (3.80-5.20); RED CELL DISTRIBUTION WIDTH 13.4 % (11.5-14.5); WHITE BLOOD COUNT 7.4 K/uL (4.8-10.8)
[2018-12-15 14:05] LABS: SQUAMOUS EPITHIAL 1 /hpf (0-5); URINE BACTERIA RARE (<OCC); URINE BILIRUBIN NEGATIVE (NEGATIVE); URINE BLOOD NEGATIVE (NEGATIVE); URINE CLARITY CLEAR (Clear); URINE COLOR YELLOW (YELLOW); URINE GLUCOSE (UA) NEG (NEGATIVE); URINE LEUKOCYTE ESTERASE NEG Leu/uL (Negative); URINE PROTEIN NEGATIVE (NEGATIVE); URINE UROBILINOGEN 0.2-1.0 mg/dL (0.2-1.0)
[2018-12-15 14:11] LABS: ALB/GLOB RATIO 1.5 (1.0-2.1); ALBUMIN 4.3 g/dL (3.5-5.0); ALT/SGPT 27 U/L (9-52); AST/SGOT 21 U/L (14-36); BLOOD UREA NITROGEN 11 mg/dl (7-17); CALCIUM 9.5 mg/dL (8.4-10.2); GFR NON-AFRICAN AMERICAN > 60; LIPASE 48 U/L (23-300)
--- NOTE | 2018-12-15 14:48 | US ---
Date of service: 12/15/2018 HISTORY: RUQ PAIN COMPARISON: None. TECHNIQUE: Sonographic evaluation of the right upper quadrant of the abdomen. FINDINGS: LIVER: Measures 17.1 cm in length. Normal echogenicity of the liver parenchyma. No mass. No intrahepatic bile duct dilatation. GALLBLADDER: Unremarkable. No gallstones. COMMON BILE DUCT: Measures 5 mm. No stones. No dilatation. PANCREAS: Unremarkable as visualized. No mass. No ductal dilatation. RIGHT KIDNEY: Measures 12.3 cm in length. Normal echogenicity. No calculus, mass, or hydronephrosis. AORTA: No aneurysmal dilatation. IVC: Unremarkable. OTHER FINDINGS: None . IMPRESSION: Unremarkable ultrasound examination. No evidence of cholelithiasis or cholecystitis.
[2018-12-15] MEDS ORDERED: Sucralfate 1 gm/10 ml Oral Susp UD PO STA (15:36)
[2018-12-15] MEDS ORDERED: Sucralfate 1 gm/10 ml Oral Susp UD ONE (15:41)
[2018-12-15 16:39] VITALS: BP 101/70; PULSE 66; RESP 16; TEMP 98.1
[2018-12-16] MEDS ORDERED: Nitroglycerin 2% Ointment Foilpak UD TOP ONE (01:22)
== END 2018-12-15 16:37 | disposition home or self-care (01) ==
LOC: H.ER 12:27
DX: K29.70 Gastritis, unspecified, without bleeding (principal); Z86.59 Personal history of other mental and behavioral disorders